=== PATIENT | male | born 1985 | race Caucasian/White ===

== ENCOUNTER 2016-05-30 22:15 | Emergency (ER) | payer MEDICAID ==
[2016-05-30 22:31] VITALS: BP 149/94
--- NOTE | 2016-05-30 23:00 | EDM.PDOC ---
ED HPI GENERAL MEDICAL PROBLEM - General Chief Complaint: General Stated Complaint: DIZZINESS Time Seen by Provider: 05/30/16 22:20 Source of Information: Reports: Patient History Limitations: Reports: No limitations - History of Present Illness INITIAL COMMENTS - FREE TEXT/NARRATIVE: 30 YO WM presents to ER complaining of possible petit mal seizure at home tonight. Pt reports history of childhood seizures but states he hasn't taken any medication since he was 4 years old. Pt reports over the last few years he has been having more of these episodes where he develops dejavu with mild headache and feeling distant with some vision loss and symptoms resolve. Pt has post ictal headache and dizziness as well as weakness and incontinence. Onset: today Duration: Day(s): (1) Associated Symptoms: Reports: diaphoresis, headaches, nausea/vomiting, seizure, weakness. Denies: confusion, chest pain, cough, cough w sputum, fever/chills, loss of appetite, malaise, rash, shortness of breath, syncope Headache Pain Score (Numeric/FACES): 5 - Related Data Allergies Allergy/AdvReac Type Severity Reaction Status Date / Time No Known Drug Allergies Allergy none Verified 05/30/16 22:48 Home Meds: Home Meds Pantoprazole Sodium [Pantoprazole Sodium] 40 mg PO DAILY 05/30/16 [History] ED ROS GENERAL - Review of Systems Review Of Systems: See Below Constitutional: Reports: no symptoms HEENT: Reports: No symptoms Respiratory: Reports: no symptoms Cardiovascular: Reports: No symptoms Endocrine: Reports: no symptoms GI/Abdominal: Reports: Diarrhea, Nausea : Reports: no symptoms, incontinence Musculoskeletal: Reports: no symptoms Skin: Reports: no symptoms Neurological: Reports: dizziness, headache, numbness, seizure, tingling, weakness Psychiatric: Reports: No symptoms Hematologic/Lymphatic: Reports: no symptoms Immunologic: Reports: no symptoms ED EXAM, GENERAL - Physical Exam Exam: See Below Exam Limited By: No limitations General Appearance: alert, WD/WN, no apparent distress Eye Exam: bilateral eye: EOMI, PERRL Ears: normal external exam, normal canal, hearing grossly normal, normal TMs Nose: normal inspection, normal mucosa, no blood Throat/Mouth: Normal inspection, Normal lips, Normal teeth, Normal gums, Normal oropharynx, Normal voice, No airway compromise Head: atraumatic, normocephalic Neck: normal inspection, supple, non-tender, full range of motion Respiratory/Chest: no respiratory distress, lungs clear, normal breath sounds, no accessory muscle use, chest non-tender Cardiovascular: normal peripheral pulses, regular rate, rhythm, no edema, no gallop, no JVD, no murmur, no rub GI/Abdominal: normal bowel sounds, soft, non tender, no organomegaly, no distention, no abnormal bruit, no mass Back Exam: normal inspection, full range of motion, NT Extremities: normal inspection, normal range of motion, non-tender, normal capillary refill, no pedal edema Neurological: alert, oriented, CN II-XII intact, normal cognition, normal gait, normal reflexes, no motor/sensory deficits Psychiatric: normal affect, normal mood Skin Exam: Warm, Dry, Intact, Normal color, No rash Lymphatic: no adenopathy Course - Vital Signs Last Recorded V/S: Last Vital Signs Temp 36.4 C 05/30/16 22:19 Pulse 91 05/30/16 22:19 Resp 16 05/30/16 22:19 BP 149/94 H 05/30/16 22:19 Pulse Ox 98 05/30/16 22:19 - Orders/Labs/Meds Orders: Active Orders 24 hr Category Date Time Status Head wo Cont [CT] Routine Exams 05/30/16 Ordered - Radiology Interpretation Free Text/Narrative:: CT Head- NAD CT Results Date: 05/30/16 CT Results Time: 23:04 Departure - Departure Time of Disposition: 23:05 Disposition: Home, Self-Care 01 Condition: good Clinical Impression: Seizure disorder, complex partial Qualifiers: Epilepsy type: partial symptomatic Intractability: not intractable Status epilepticus: without status epilepticus Qualified Code(s): G40.209 - Localization-related (focal) (partial) 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 focal seizure Plan: 1. follow up with [facility] for further evaluation and treatment 2. referral to neurologist for further evaluation and treatment 3. return to ER for worsening symptoms
[2016-05-30] MEDS ORDERED: LORazepam 2 MG/ML MDV IM ONE (23:02)
== END 2016-05-30 23:10 | disposition home or self-care (01) ==
LOC: KA.ED 22:15
DX: G40.209 Localization-related (focal) (partial) symptomatic epilepsy and epileptic syndromes with complex partial seizures, not intractable, without status epilepticus (principal)
CPT/HCPCS: 70450; 99283

== ENCOUNTER 2019-12-30 17:40 | Emergency (ER) | payer MEDICAID, OTHER ==
[2019-12-30] MEDS ORDERED: Sodium Chloride 0.9% 10 ML Syringe FLUSH PRN (18:10)
[2019-12-30] MEDS ORDERED: Sodium Chloride 0.9% 1,000 ML IV ONE (18:11)
--- NOTE | 2019-12-30 18:42 | EDM.PDOC ---
ED HPI GENERAL MEDICAL PROBLEM - General Chief Complaint: General Stated Complaint: FLU-LIKE SYMPTOMS Time Seen by Provider: 12/30/19 18:15 Source of Information: Reports: Patient History Limitations: Reports: No Limitations - History of Present Illness INITIAL COMMENTS - FREE TEXT/NARRATIVE: 34 YO WM PRESENTS TO ER COMPLAINING OF FLU-LIKE SYMPTOMS WHICH BEGAN THIS AM. PT REPORTS HE WOKE AROUND 5AM WITH NASAL CONGESTION AND MILD COUGH. PT REPORTS HE HAD NO APPETITE AND DEVELOPED GENERALIZED BODY ACHES AND FATIGUE BUT WENT TO WORK. PT REPORTS HIS FATIGUE WORSENED WITH SOME MILD SHORTNESS OF BREATH. PT DENIES FEVER/CHILLS, NO VOMITING, NO CHEST PAIN. PT REPORTS 3 EPISODES OF WATERY STOOL TODAY. PT DENIES ANY KNOWN COVID EXPOSURES AT THIS TIME. PT WITH HISTORY OF ASTHMA AND STATES HE USED HIS STEROIDAL INHALER TODAY BUT DID NOT REQUIRE HIS ALBUTEROL RESCUE INHALER. Onset: Today Location: Reports: Generalized Severity: Mild Improves with: Reports: Rest Associated Symptoms: Reports: Cough, Malaise, Shortness of Breath Generalized Pain Score (Numeric/FACES): 6 - Related Data Allergies Allergy/AdvReac Type Severity Reaction Status Date / Time diphenhydramine Allergy Hyperactivi Verified 12/30/19 17:56 [From Benadryl] ty prochlorperazine Allergy Hyperactivi Verified 12/30/19 17:56 [From Compazine] ty Home Meds: Home Meds Pantoprazole Sodium 40 mg PO DAILY PRN 05/30/16 [History] Budesonide [Pulmicort] 1 inh NASBOTH DAILY 12/30/19 [History] Escitalopram Oxalate [Lexapro] 20 mg PO BEDTIME 12/30/19 [History] Levocetirizine Dihydrochloride [Xyzal] 5 mg PO BEDTIME 12/30/19 [History] Mometasone/Formoterol [Dulera 100 Mcg/5 Mcg Inhaler] 2 puff IH BID 12/30/19 [History] busPIRone [Buspar] 15 mg PO DAILY 12/30/19 [History] Past Medical History Gastrointestinal History: Reports: GERD Neurological History: Reports: Seizure 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 Social & Family History - Caffeine Use Caffeine Use: Reports: Soda ED ROS GENERAL - Review of Systems Review Of Systems: See Below Constitutional: Reports: Chills, Malaise, Weakness HEENT: Reports: Throat Pain Respiratory: Reports: Shortness of Breath Cardiovascular: Reports: No Symptoms Endocrine: Reports: No Symptoms GI/Abdominal: Reports: Diarrhea, Nausea : Reports: No Symptoms Musculoskeletal: Reports: No Symptoms Skin: Reports: No Symptoms Neurological: Reports: No Symptoms Psychiatric: Reports: No Symptoms Hematologic/Lymphatic: Reports: No Symptoms Immunologic: Reports: No Symptoms ED EXAM, GENERAL - Physical Exam Exam: See Below Exam Limited By: No Limitations General Appearance: Alert, WD/WN, No Apparent Distress Eye Exam: Bilateral Eye: EOMI, PERRL Ears: Normal External Exam, Normal Canal, Hearing Grossly Normal, Normal TMs Nose: Clear Rhinorrhea Throat/Mouth: Normal Inspection, Normal Lips, Normal Teeth, Normal Gums, Normal Oropharynx, Normal Voice, No Airway Compromise Head: Atraumatic, Normocephalic Neck: Normal Inspection, Supple, Non-Tender, Full Range of Motion Respiratory/Chest: No Respiratory Distress, Lungs Clear, Normal Breath Sounds, No Accessory Muscle Use, Chest Non-Tender Cardiovascular: Normal Peripheral Pulses, Regular Rate, Rhythm, No Edema, No Gallop, No JVD, No Murmur, No Rub GI/Abdominal: Normal Bowel Sounds, Soft, Non-Tender, No Organomegaly, No Distention, No Abnormal Bruit, No Mass Back Exam: Normal Inspection, Full Range of Motion, NT Extremities: Normal Inspection, Normal Range of Motion, Non-Tender, Normal Capillary Refill, No Pedal Edema Neurological: Alert, Oriented, CN II-XII Intact, Normal Cognition, Normal Gait, Normal Reflexes, No Motor/Sensory Deficits Psychiatric: Normal Affect, Normal Mood Skin Exam: Warm, Dry, Intact, Normal Color, No Rash Course - Vital Signs Last Recorded V/S: Last Vital Signs Temp 36.8 C 12/30/19 17:43 Pulse 99 12/30/19 19:00 Resp 20 12/30/19 19:00 BP 150/97 H 12/30/19 19:00 Pulse Ox 95 12/30/19 19:00 - Orders/Labs/Meds Orders: Active Orders 24 hr Category Date Time Status Peripheral IV Care [RC] . DIRECTED Care 12/30/19 18:10 Active Chest 2V [CR] Stat Exams 12/30/19 18:06 Ordered CULTURE STREP A CONFIRMATION [RM] Stat Lab 12/30/19 18:30 Results STREP SCRN A RAPID W CULT CONF [RM] Stat Lab 12/30/19 18:30 Received UA RFX IVON AND CULT IF INDIC [URIN] Stat Lab 12/30/19 18:06 Ordered Sodium Chloride 0.9% [Saline Flush] Med 12/30/19 18:10 Active 10 ml FLUSH Q8HR PRN Isolation [COMM] Routine Oth 12/30/19 18:08 Ordered Isolation [COMM] Routine Oth 12/30/19 18:09 Ordered Peripheral IV Insertion Adult [OM.PC] Routine Oth 12/30/19 18:10 Ordered Medication Orders Sodium Chloride (Saline Flush) 10 ml FLUSH Q8HR PRN PRN Reason: keep vein open Last Admin: 12/30/19 18:51 Dose: 10 ml Documented by: ARNIE Labs: Laboratory Tests 12/30/19 12/30/19 Range/Units 18:30 18:30 WBC 9.03 (5.00-10.00) 10^3/uL RBC 5.49 (4.50-6.00) 10^6/uL Hgb 14.9 (13.0-17.0) g/dL Hct 45.7 (40.0-52.0) % MCV 83.2 (82.0-92.0) fL MCH 27.1 (27.0-31.0) pg MCHC 32.6 (32.0-36.0) g/dL RDW 12.7 (11.5-14.5) % Plt Count 231 (150-400) 10^3/uL MPV 9.1 (7.4-10.4) fL Immature Gran % (Auto) 0.1 (0.0-5.0) % Neut % (Auto) 70.5 H (50.0-70.0) % Lymph % (Auto) 18.5 L (20.0-40.0) % [place] % (Auto) 6.6 (2.0-8.0) % Eos % (Auto) 3.7 H (1.0-3.0) % Baso % (Auto) 0.6 (0.0-1.0) % Neut # (Auto) 6.37 (2.50-7.00) 10^3/uL Lymph # (Auto) 1.67 (1.00-4.00) 10^3/uL [place] # (Auto) 0.60 (0.10-0.80) 10^3/uL Eos # (Auto) 0.33 H (0.10-0.30) 10^3/uL Baso # (Auto) 0.05 (0.00-0.10) 10^3/uL Immature Gran # (Auto) 0.01 (0.00-0.50) 10^3/uL Sodium 139 (136-145) mmol/L Potassium 3.4 (3.3-5.3) mmol/L Chloride 102 (98-115) mmol/L Carbon Dioxide 29.2 (21.0-32.0) mmol/L Anion Gap 11.2 (5-15) mmol/L BUN 13 (6-25) mg/dL Creatinine 1.11 (0.51-1.17) mg/dL Est Cr Clr Drug Dosing 94.66 mL/min Estimated GFR (MDRD) > 60 mL/min Glucose 105 H (75 - 99) mg/dL Calcium 8.6 L (8.7-10.3) mg/dL Total Bilirubin 0.4 (0.2-1.0) mg/dL AST 25 (15-37) U/L ALT 62 (12-78) U/L Alkaline Phosphatase 76 (46-116) IU/L Total Protein 7.8 (6.4-8.2) g/dL Albumin 4.07 (3.00-4.80) g/dL Lipase 63 L (73-393) U/L Meds: Medications Generic Name Dose Route Start Last Admin Trade Name Freq PRN Reason Stop Dose Admin Sodium Chloride 10 ml 12/30/19 18:10 12/30/19 18:51 Saline Flush FLUSH 10 ml Q8HR PRN Administration keep vein open Discontinued Medications Generic Name Dose Route Start Last Admin Trade Name Freq PRN Reason Stop Dose Admin Acetaminophen 1,000 mg 12/30/19 19:01 Tylenol Extra Strength PO 12/30/19 19:02 ONETIME ONE Sodium Chloride 1,000 mls @ 999 mls/hr 12/30/19 18:11 12/30/19 18:30 Normal Saline IV 12/30/19 19:11 999 mls/hr .BOLUS ONE Administration - Radiology Interpretation Free Text/Narrative:: CXR-NAD Departure - Departure Time of Disposition: 19:19 Disposition: Home, Self-Care 01 Condition: Good Clinical Impression: Upper respiratory infection, viral - Discharge Information Instructions: Upper Respiratory Infection, Adult, [id number] Referrals: Osiris Parks MD [Physician] - Forms: ED Department Discharge, ED Return to Work/School Form Additional Instructions: 1. DISCHARGE HOME 2. QUARANTINE UNTIL COVID RESULTS BACK 3. MOTRIN/TYLENOL FOR FEVER/BODY ACHES 4. ZYRTEC 10MG DAILY FOR CONGESTION 5. AFRIN NS 2 SPRAYS EACH NOSTRIL TWICE/DAY X 3 DAYS 6. PUSH FLUIDS 7. ALBUTEROL INHALER EVERY 4 HOURS AND NEEDED 8. RETURN TO ER FOR WORSENING SYMPTOMS 9. FOLLOW UP WITH PCP FOR FURTHER EVALUATION AND TREATMENT NEEDED Sepsis Event Note (ED) - Evaluation Sepsis Screening Result: No Definite Risk - Focused Exam Vital Signs: Vital Signs Temp Pulse Resp BP Pulse Ox 12/30/19 19:00 99 20 150/97 H 95 12/30/19 18:45 106 H 20 140/107 H 97 12/30/19 17:43 36.8 C 112 H 20 165/111 H 98 - My Orders Last 24 Hours: My Active Orders 12/30/19 18:06 Chest 2V [CR] Stat UA RFX IVON AND CULT IF INDIC [URIN] Stat 12/30/19 18:08 Isolation [COMM] Routine 12/30/19 18:09 Isolation [COMM] Routine 12/30/19 18:10 Peripheral IV Care [RC] . DIRECTED Sodium Chloride 0.9% [Saline Flush] 10 ml FLUSH Q8HR PRN Peripheral IV Insertion Adult [OM.PC] Routine 12/30/19 18:30 CULTURE STREP A CONFIRMATION [RM] Stat STREP SCRN A RAPID W CULT CONF [RM] Stat - Assessment/Plan Last 24 Hours: My Active Orders 12/30/19 18:06 Chest 2V [CR] Stat UA RFX IVON AND CULT IF INDIC [URIN] Stat 12/30/19 18:08 Isolation [COMM] Routine 12/30/19 18:09 Isolation [COMM] Routine 12/30/19 18:10 Peripheral IV Care [RC] . DIRECTED Sodium Chloride 0.9% [Saline Flush] 10 ml FLUSH Q8HR PRN Peripheral IV Insertion Adult [OM.PC] Routine 12/30/19 18:30 CULTURE STREP A CONFIRMATION [RM] Stat STREP SCRN A RAPID W CULT CONF [RM] Stat Assessment:: 1. VIRAL URI Plan: 1. DISCHARGE HOME 2. QUARANTINE UNTIL COVID RESULTS BACK 3. MOTRIN/TYLENOL FOR FEVER/BODY ACHES 4. ZYRTEC 10MG DAILY FOR CONGESTION 5. AFRIN NS 2 SPRAYS EACH NOSTRIL TWICE/DAY X 3 DAYS 6. PUSH FLUIDS 7. ALBUTEROL INHALER EVERY 4 HOURS AND NEEDED 8. RETURN TO ER FOR WORSENING SYMPTOMS 9. FOLLOW UP WITH PCP FOR FURTHER EVALUATION AND TREATMENT NEEDED
[2019-12-30 19:00] LABS: ANION GAP 11.2 mmol/L (5-15); CHLORIDE,CL 102 mmol/L (98-115); SODIUM,NA 139 mmol/L (136-145)
[2019-12-30] MEDS ORDERED: Acetaminophen 500 MG Tab PO ONE (19:01)
--- NOTE | 2019-12-30 19:29 | CR ---
[id number] RAD/RAD Chest PA And Lateral EXAM: RAD Chest PA And Lateral INDICATION: SHORTNESS OF BREATH. COMPARISON: None. DISCUSSION: Cardiomediastinal silhouette is normal in size and contour. No infiltrate, effusion, pneumothorax, or edema. IMPRESSION: Negative examination of the chest. George Bruce MD 12/30/19 1928 Thank you for allowing us to participate in the care of your patient.
[2019-12-30 19:35] VITALS: BP 150/93; PULSE 97
== END 2019-12-30 19:40 | disposition home or self-care (01) ==
LOC: KA.ED 17:40
DX: J06.9 Acute upper respiratory infection, unspecified (principal); K21.9 Gastro-esophageal reflux disease without esophagitis; Z88.8 Allergy status to other drugs, medicaments and biological substances; Z79.899 Other long term (current) drug therapy; Z20.828 Contact with and (suspected) exposure to other viral communicable diseases
CPT/HCPCS: 36415; 71046; 80053; 81001; 83690; 85025; 87081; 87430; 87804; 96360; 99283; 99284; A9270; J7030; U0002